=== PATIENT | male | born 1995 | race African-American/Black ===

== ENCOUNTER 2016-08-17 02:09 | Emergency (ER) | payer OTHER ==
[~2016-08-17] VITALS: Ht 170.2 cm; Wt 59.9 kg
[~2016-08-17 02:09] MED LIST: AZITHROMYCIN250 MG PO; MOTRIN600 MG PO; PREDNISONE20 MG PO; ULTRACET1 TABLET PO
[2016-08-17] MEDS ORDERED: NAPROXEN500 MG PO (03:11)
[2016-08-17 03:22] VITALS: BP 126/81
== END 2016-08-17 03:23 | disposition home or self-care (01) ==
LOC: EME 02:09 → EXP 02:09
DX: J02.9 Acute pharyngitis, unspecified (principal)
CPT/HCPCS: 87651 90; 99281; 99283; J8540

== ENCOUNTER 2016-08-19 02:32 | Emergency (ER) | payer OTHER ==
[~2016-08-19] VITALS: Ht 170.2 cm; Wt 59.0 kg
[~2016-08-19 02:32] MED LIST changes: +NAPROXEN500 MG PO
[2016-08-19 02:35] VITALS: BP 119/59
[2016-08-19 04:12] LABS: INTERNAL CONTROL VALID? YES; MONOSPOT (MONONUCLEOSIS SEROL) NEGATIVE
[2016-08-19] MEDS ORDERED: AUGMENTIN875 MG PO (05:00)
== END 2016-08-19 05:23 | disposition home or self-care (01) ==
LOC: EME 02:32
PROVIDERS: Emergency Medicine
DX: J02.9 Acute pharyngitis, unspecified (principal)
CPT/HCPCS: 70360; 86308; 87651 90; 99281; 99283

== ENCOUNTER 2016-12-18 16:13 | Emergency (ER) | payer OTHER ==
[~2016-12-18] VITALS: Ht 170.2 cm; Wt 58.2 kg
[~2016-12-18 16:13] MED LIST changes: +AUGMENTIN875 MG PO
[2016-12-18 18:34] LABS: ADD MIUA? YES; BILIRUBIN NEGATIVE; BLOOD NEGATIVE; COLOR YELLOW ((YELLOW)); GLUCOSE (STRIP) NEGATIVE; KETONES NEGATIVE; LEUKOCYTES TRACE; NITRITE NEGATIVE; PROTEIN (STRIP) NEGATIVE; SPECIFIC GRAVITY 1.019 (1.000-1.030); UROBILINOGEN 0.2 MG/DL (0.2-1.0)
[2016-12-18 18:40] LABS: BACTERIA RARE /HPF; EPITHELIAL CELLS NONE SEEN /HPF; MUCUS TRACE /LPF; UCUL ADDED? YES; WHITE BLOOD CELLS 30-40 /HPF (0-5)
[2016-12-18] MEDS ORDERED: VIBRAMYCIN100 MG PO (19:18)
[2016-12-18 19:40] VITALS: BP 115/81
[2016-12-19 11:34] LABS: CHLAMYDIA TRACHOMATIS NEGATIVE; NEISSERIA GONORRHOEAE NEGATIVE
== END 2016-12-18 19:40 | disposition home or self-care (01) ==
LOC: EME 16:13
PROVIDERS: Nurse Practitioner Family
DX: N34.2 Other urethritis (principal); K59.00 Constipation, unspecified
CPT/HCPCS: 81003; 87086; 87491; 87591; 99281; 99283

== ENCOUNTER 2017-10-14 17:20 | Emergency (ER) | payer OTHER ==
[~2017-10-14] VITALS: Ht 172.7 cm; Wt 58.7 kg
[~2017-10-14 17:20] MED LIST changes: +VIBRAMYCIN100 MG PO
[2017-10-14 18:11] LABS: HEMATOCRIT 37.3 % (38.0-50.0); HEMOGLOBIN 13.2 G/DL (12.5-16.6); MCH 29.9 PG (29.0-34.0); MCHC 35.4 G/DL (30.0-36.0); MCV 84.6 FL (86-99); PLATELET COUNT 141 K/uL (156-360); RBC DIS.WIDTH-CV 15.8 % (11.8-14.6); RBC DIS.WIDTH-SD 48.2 % (39-53); RED BLOOD COUNT 4.41 M/uL (4.00-5.50); WHITE BLOOD COUNT 9.5 K/uL (4.1-10.2)
[2017-10-14 18:30] LABS: CHLORIDE 100 mEq/L (99-109); POTASSIUM 3.9 mEq/L (3.7-5.4); SODIUM 136 mEq/L (136-147)
[2017-10-14 18:32] LABS: GLUCOSE 92 mg/dL (70-99)
[2017-10-14 18:35] LABS: CREATININE 1.3 mg/dL (0.6-1.3); GFR ESTIMATE (CALCULATED) > 59 mL/min/ (58.99-99999)
[2017-10-14 18:36] LABS: UREA NITROGEN (BUN) 8 mg/dL (9-23)
[2017-10-14] MEDS ORDERED: TESSALON200 MG PO (19:31)
[2017-10-14] MEDS ORDERED: VENTOLIN HFA18 GM IH (19:31)
[2017-10-14 19:45] VITALS: BP 132/77
== END 2017-10-14 19:45 | disposition home or self-care (01) ==
LOC: EXP 17:20 → EME 17:20 → EXP 19:45
PROVIDERS: Nurse Practitioner Family
DX: J06.9 Acute upper respiratory infection, unspecified (principal)
CPT/HCPCS: 71046; 80048; 85027; 93005; 94640; 99281; 99285